=== PATIENT | male | born 1985 | race Two or more races ===

== ENCOUNTER 2023-09-26 18:06 | Emergency (ER) | payer OTHER ==
[~2023-09-26] VITALS: Ht 172.7 cm; Wt 95.0 kg
[2023-09-26 19:43] VITALS: BP 144/87; PULSE 82; RESP 18; TEMP 97.6; O2SAT 97
[2023-09-26] MEDS ORDERED: traMADol HCL 50 MG TAB PO ONE (19:45)
[2023-09-26] MEDS ORDERED: CYCL-839 PO (20:34)
[2023-09-26] MEDS ORDERED: IBUP-1456 PO (20:34)
== END 2023-09-26 21:00 | disposition home or self-care (01) ==
LOC: ER 18:06
DX: S32.018A Other fracture of first lumbar vertebra, initial encounter for closed fracture (principal); W17.89XA Other fall from one level to another, initial encounter; Y93.89 Activity, other specified; Y92.89 Other specified places as the place of occurrence of the external cause; Y99.8 Other external cause status
CPT/HCPCS: 72100; 73502